=== PATIENT | male | born 1955 | race American Indian/Alaskan Native ===

== ENCOUNTER 2020-11-11 18:39 | Observation (INO) | payer MEDICARE ==
[2020-11-11] MEDS ORDERED: ASPIRIN 325 MG TAB PO ONE (18:47)
--- NOTE | 2020-11-11 18:57 | Event Note ---
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 Further treatment and workup at subsequent clinical providers discretion. Patient/guardian urged not to elope from the ED as their condition may be serious if not clinically assessed and managed. Initial orders include: Code stroke
--- NOTE | 2020-11-11 19:27 | Consultation ---
Medications and Allergies Allergies Allergy/AdvReac Type Severity Reaction Status Date / Time ibuprofen [From Motrin] AdvReac Unknown Verified 11/11/20 18:44 shellfish derived AdvReac Angioedema Verified 11/11/20 18:44 Active Meds: Active Medications Aspirin (Aspirin 325 Mg Tab) 325 mg PO ONCE ONE Stop: 11/11/20 18:48 Physical Examination - Vital Signs Vital Signs: Vital Signs Temp Pulse Resp BP Pulse Ox 97.8 F 89 18 174/73 92 11/11/20 18:43 11/11/20 18:43 11/11/20 18:43 11/11/20 18:43 11/11/20 18:43 Results - Laboratory Findings Abnormal Lab Findings: Abnormal Labs 11/11/20 18:56 POC Glucose 125 H Assessment and Plan [facility] Date of Service: 11/11/2020 18:59:16 Impression: I63.0 - Cerebral infarction due to thrombosis of precerebral arteries Comments/Sign-Out: 65 yo M h/o HTN, DM, HL, lung cancer s/p partial lung resection, radiation, previous renal dialysis, now off HD, [place], DVTs, R hip pain, h/o lung and abdominal bleeding while on Coumadin requiring ICU stay p/w episode of numbness L side followed by chest pain, L arm pain and L sided weakness. Metrics: Last Known Well: 11/11/2020 15:00:00 [facility] Notification Time: 11/11/2020 18:58:59 Arrival Time: 11/11/2020 18:59:00 Stamp Time: 11/11/2020 18:59:16 Time First Login Attempt: 11/11/2020 19:05:51 Video Start Time: 11/11/2020 19:05:51 Symptoms: L sided weakness, chest pain NIHSS Start Assessment Time: 11/11/2020 19:10:50 Patient is not a candidate for Alteplase/Activase. Patient was not deemed candidate for Alteplase/Activase thrombolytics because of Coagulopathy. CT head showed no acute hemorrhage or acute core infarct. Lower Likelihood of Large Vessel Occlusion but Following Stat Studies are Recommended CTA Head and Neck. Sign Out: Inpatient stroke workup Discussed with Emergency Department Provider History of Present Illness: Patient is a 65 year old Male. Patient was brought by private transportation with symptoms of L sided weakness, chest pain 65 yo M h/o HTN, DM, HL, lung cancer s/p partial lung resection, radiation, previous renal dialysis, now off HD, [place], DVTs, R hip pain, h/o lung and abdominal bleeding while on Coumadin requiring ICU stay p/w episode of numbness L side followed by chest pain, L arm pain and L sided weakness. Past Medical History: Hypertension Diabetes Mellitus Hyperlipidemia Coronary Artery Disease Stroke Anticoagulant use: No Antiplatelet use: No Examination: BP(174/73), Pulse(89), Blood Glucose(125) 1A: Level of Consciousness - Alert; keenly responsive + 0 1B: Ask Month and Age - Both Questions Right + 0 1C: Blink Eyes & Squeeze Hands - Performs Both Tasks + 0 2: Test Horizontal Extraocular Movements - Normal + 0 3: Test Visual Walsh - No Visual Loss + 0 4: Test Facial Palsy (Use Grimace if Obtunded) - Normal symmetry + 0 5A: Test Left Arm Motor Drift - Some Effort Against [place] + 2 5B: Test Right Arm Motor Drift - No Drift for 10 Seconds + 0 6A: Test Left Leg Motor Drift - Drift, hits bed + 2 6B: Test Right Leg Motor Drift - No Drift for 5 Seconds + 0 7: Test Limb Ataxia (FNF/Heel-Forte) - No Ataxia + 0 8: Test Sensation - Mild-Moderate Loss: Less Sharp/More Dull + 1 9: Test Language/Aphasia - Normal; No aphasia + 0 10: Test Dysarthria - Normal + 0 11: Test Extinction/Inattention - No abnormality + 0 NIHSS Score: 5 Patient/Family was informed the Neurology Consult would happen via TeleHealth consult by way of interactive audio and video telecommunications and consented to receiving care in this manner. Due to the immediate potential for life-threatening deterioration due to underlying acute neurologic illness, I spent 30 minutes providing critical care. This time includes time for face to face visit via telemedicine, review of medical records, imaging studies and discussion of findings with providers, the patient and/or family. Dr Sagrario Cardenas [facility] Case [id number]
--- NOTE | 2020-11-11 19:30 | Cat Scan Report ---
CT HEAD WITHOUT CONTRAST INDICATION / CLINICAL INFORMATION: Cerebrovascular accident. Code stroke. TECHNIQUE: All CT scans at this location are performed using CT dose reduction for ALARA by means of automated e xposure control. COMPARISON: None available. FINDINGS: HEMORRHAGE: No evidence of intracranial hemorrhage or extra-axial fluid collection. EXTRA-AXIAL SPACES: Cortical sulci, sylvian fissures and basilar cisterns have an unremarkable appear ance. VENTRICULAR SYSTEM: The third and lateral ventricles are of normal size and configuration. CEREBRAL PARENCHYMA: No areas of abnormal brain parenchymal attenuation are identified. There is no i ndication of recent infarction. MIDLINE SHIFT OR HERNIATION: There is no mass effect. CEREBELLUM / BRAINSTEM: Brainstem and cerebellum have an unremarkable appearance. MIDLINE STRUCTURES:No abnormalities of the pituitary gland or pineal region are identified. INTRACRANIAL VESSELS:No abnormalities are identified on this noncontrast head CT. ORBITS: Status post bilateral cataract surgery. No additional abnormality. SOFT TISSUES of HEAD: No significant abnormality. CALVARIUM: Evaluation of bone windows reveals no abnormalities. PARANASAL SINUSES / MASTOID AIR CELLS: Visualized portions of the paranasal sinuses are free from inf lammatory mucosal disease. Mastoid air cells are normally pneumatized. IMPRESSION: 1. No intracranial abnormalities are identified on head CT without contrast. 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 Lu of the [facility] emergency departm ent. Licensed Practitioner Receiving Report: [id number]. Signer Name: Jose F Reyes MD Signed: 11/11/2020 7:25 PM Workstation Name: [id number]
[2020-11-11 19:55] LABS: Basophils % (Auto) 0.4 % (0.0-1.8); Eosinophils # (Auto) 0.1 K/mm3 (0.0-0.4); Eosinophils % (Auto) 2.8 % (0.0-4.3); Hematocrit 40.1 % (35.5-45.6); Lymphocytes # (Auto) 1.8 K/mm3 (1.2-5.4); Lymphocytes % (Auto) 47.3 % (13.4-35.0); Mean Corpuscular HGB Conc 35 % (32-34); Mean Corpuscular Volume 89 fl (84-94); Monocytes # (Auto) 0.3 K/mm3 (0.0-0.8); Monocytes % (Auto) 9.3 % (0.0-7.3); Platelet Count 124 K/mm3 (140-440); Red Blood Count 4.52 M/mm3 (3.65-5.03); Red Cell Distribution Width 17.3 % (13.2-15.2)
[2020-11-11 20:09] LABS: INR 1.1 (0.87-1.13); Partial Thromboplastin Time 30.1 Sec. (24.2-36.6); Thrombin Time 17.5 Sec. (15.1-19.6)
[2020-11-11 20:11] LABS: Creatine Kinase MB 12.7 ng/mL (0.0-4.0)
[2020-11-11 20:12] LABS: BUN/Creatinine Ratio 11; Blood Urea Nitrogen 16 mg/dL (9-20); Calcium 9.3 mg/dL (8.4-10.2); Hemolysis Index 40
[2020-11-11 20:14] LABS: BUN/Creatinine Ratio 11; Blood Urea Nitrogen 16 mg/dL (9-20); Calcium 9.2 mg/dL (8.4-10.2); Hemolysis Index 24
[2020-11-11 20:27] LABS: Alanine Aminotransferase < 5 units/L (7-56)
--- NOTE | 2020-11-11 21:07 | Emergency Department Report ---
ED Chest Pain HPI - General Chief Complaint: Chest Pain Stated Complaint: CHEST PAIN Time Seen by Provider: 11/11/20 18:55 Source: patient Mode of arrival: Ambulatory Limitations: No Limitations - History of Present Illness Initial Comments: CC: chest pain, can not move left side HPI: This is a 65-year-old male with history of lung cancer, myocardial infarction, radiation pneumonitis, DVT, chronic kidney disease and tobacco dependence who presents with chest pain left arm pain left leg weakness left leg weakness. Patient had chest pain which began at rest approximately 1:30 PM this afternoon. Subsequently, he realized that he had left arm weakness left leg weakness with associated numbness. Symptoms occurred around 3 PM. His daughter brought him to the emergency department. Chest pain feels like previous heart attack. He has a chest tightness rating to left shoulder. Chest pain has since resolved without treatment. Patient explained that his heart attack was "mild". He does not have a cardiac stent. He was treated only with nitroglycerin. Patient was recently admitted to [facility] for hemoptysis. Patient was treated for lung cancer with lobectomy and radiation treatment 3 years ago at [facility] in [place]. Patient developed radiation pneumonitis which causes recurrent hemoptysis. Patient has is unable to use anticoagulation or take anticoagulation medicine due to history of severe bleeding. He has history of left leg DVT and right upper extremity DVT. In the past patient has required hemodialysis. He no longer requires hemodialysis. Outside records obtained from [facility] according to inpatient consultation note. patient has history of lung cancer status post wedge resection of upper one third right upper lobe in 2013. Patient had recurrence of lung ca with treatment of chemo and radiation 2 years ago at the [facility]. Patient had NM 10 years ago. Patient has history of COPD. Patient has history of PE DVT status post IVC filter. Patient also has a history of staph and MDR pseudomonal bacteremia. Additional history includes duodenal ulcers On 09/30/2020, CT angiogram of the chest revealed no definite acute findings, Complaint: chest pain, other (Left arm pain, left arm weakness, left leg weakness) -: Gradual, This afternoon Onset: during rest Pain Radiation: LUE Severity: severe Severity scale (0 -10): 0 Quality: tightness, heaviness Consistency: now resolved Improves With: nothing Worsens With: nothing Other Symptoms: other (Left arm pain left leg weakness left arm weakness) Treatments Prior to Arrival: none - Related Data Allergies Allergy/AdvReac Type Severity Reaction Status Date / Time ibuprofen [From Motrin] AdvReac Unknown Verified 11/11/20 18:44 shellfish derived AdvReac Angioedema Verified 11/11/20 18:44 Heart Score - HEART Score History: Slightly suspicious EKG: Non-specific Age: > 65 Risk factors: 1-2 risk factors Troponin: < normal limit HEART Score: 4 ED Review of Systems ROS: Stated complaint: CHEST PAIN Other details as noted in HPI Comment: All other systems reviewed and negative Constitutional: denies: fever, malaise Respiratory: denies: cough, shortness of breath Cardiovascular: chest pain Neurological: weakness, numbness. denies: headache ED Past Medical Hx - Past Medical History Previous Medical History?: Yes Hx Heart Attack/AMI: Yes (2017) Hx Deep Vein Thrombosis: Yes Hx Renal Disease: Yes Hx of Cancer: Yes (lung cancer) - Surgical History Past Surgical History?: Yes Additional Surgical History: Lobectomy, Back surgery laminectomy, bronchial artery coiling, IVC filter, previous port placement, tracheostomy - Social History Smoking Status: Never Smoker Substance Use Type: None ED Physical Exam - General Limitations: No Limitations General appearance: alert, in no apparent distress - Head Head exam: Present: atraumatic, normocephalic - Eye Eye exam: Present: normal appearance - ENT ENT exam: Present: mucous membranes moist - Neck Neck exam: Present: normal inspection, full ROM - Respiratory Respiratory exam: Present: normal lung sounds bilaterally. Absent: respiratory distress, wheezes, rales, rhonchi - Cardiovascular Cardiovascular Exam: Present: regular rate, normal rhythm, normal heart sounds. Absent: systolic murmur, diastolic murmur, rubs, gallop - GI/Abdominal GI/Abdominal exam: Present: soft, normal bowel sounds. Absent: distended, tenderness, guarding, rebound - Rectal Rectal exam: Present: deferred - Extremities Exam Extremities exam: Present: normal inspection - Neurological Exam Neurological exam: Present: alert, oriented X3 - Psychiatric Psychiatric exam: Present: normal affect, normal mood - Skin Skin exam: Present: warm, dry, intact, normal color. Absent: rash ED Course Vital Signs 11/11/20 11/11/20 11/11/20 18:43 19:46 20:00 Temperature 97.8 F Pulse Rate 89 71 75 Respiratory 18 20 12 Rate Blood Pressure 155/80 Blood Pressure 174/73 [Left] O2 Sat by Pulse 92 98 97 Oximetry 11/11/20 11/11/20 11/11/20 21:00 21:30 21:45 Temperature Pulse Rate 65 62 69 Respiratory 17 10 L 16 Rate Blood Pressure 155/80 156/76 156/76 Blood Pressure [Left] O2 Sat by Pulse 97 97 Oximetry - Central Line Placement Right Femoral Consent Obtained: verbal consent Time Out Performed: Yes Patient Placed on Monitor/Pulse Ox: Yes MD Prep: mask, gown, gloves, other (cap) Central Line Prep: Chlorhexidine scrub, sterile drapes applied Local Anesthesia Used: Lidocaine 1% Amount of Anesthesia Used (mls): 5 Ultrasound Used for Placement: Yes Central Line Lumen Inserted: triple Bloods Obtained for Lab: Yes Central Line Position: good blood return, sutured in place with nyl Dressing Applied: Tegaderm, other (biopatch) Patient Tolerated Procedure: well Complications: none JOI score - Joi Score Age > 65: (0) No Aspirin use within the Past 7 Days: (0) No 3 or more CAD Risk Factors: (0) No 2 or more Angina events in past 24 hrs: (0) No Known CAD with more than 50% Stenosis: (0) No Elevated Cardiac Markers: (0) No ST Deviation Greater than 0.5mm: (0) No JOI Score: 0 ED Medical Decision Making - Lab Data Result diagrams: 11/11/20 19:42 11/11/20 19:42 Laboratory Results - last 24 hr 11/11/20 11/11/20 11/11/20 18:56 19:42 19:42 WBC 3.7 L RBC 4.52 Hgb 14.0 Hct 40.1 MCV 89 MCH 31 MCHC 35 H RDW 17.3 H Plt Count 124 L Lymph % (Auto) 47.[address] % (Auto) 9.3 H Eos % (Auto) 2.8 Baso % (Auto) 0.4 Lymph # (Auto) 1.8 Lane # (Auto) 0.3 Eos # (Auto) 0.1 Baso # (Auto) 0.0 Seg Neutrophils % 40.2 Seg Neutrophils # 1.5 L PT INR APTT Thrombin Time Sodium 141 Potassium 4.0 Chloride 109.8 H Carbon Dioxide 23 Anion Gap 12 BUN 16 Creatinine 1.4 H Estimated GFR 51 BUN/Creatinine Ratio 11 Glucose 123 H POC Glucose 125 H Calcium 9.3 Total Bilirubin AST ALT Alkaline Phosphatase Total Creatine Kinase CK-MB (CK-2) CK-MB (CK-2) Rel Index Troponin T < 0.010 Total Protein Albumin Albumin/Globulin Ratio 11/11/20 11/11/20 19:42 19:42 WBC RBC Hgb Hct MCV MCH MCHC RDW Plt Count Lymph % (Auto) Lane % (Auto) Eos % (Auto) Baso % (Auto) Lymph # (Auto) Lane # (Auto) Eos # (Auto) Baso # (Auto) Seg Neutrophils % Seg Neutrophils # PT 14.1 INR 1.10 APTT 30.1 Thrombin Time 17.5 Sodium 138 Potassium 3.8 Chloride 108.2 H Carbon Dioxide 22 Anion Gap 12 BUN 16 Creatinine 1.4 H Estimated GFR 51 BUN/Creatinine Ratio 11 Glucose 123 H POC Glucose Calcium 9.2 Total Bilirubin 0.20 AST 29 ALT < 5 L Alkaline Phosphatase 65 Total Creatine Kinase 348 H CK-MB (CK-2) 12.7 H CK-MB (CK-2) Rel Index 3.6 Troponin T Total Protein 6.8 Albumin 4.0 Albumin/Globulin Ratio 1.4 - EKG Data -: EKG Interpreted by Me EKG shows normal: sinus rhythm, axis, intervals, QRS complexes, ST-T waves Rate: normal - EKG Data Interpretation: normal EKG 11/11/20 21:10 EKG obtained 1842 EKG interpreted by ms Rate 90 bpm Normal sinus rhythm normal rate normal axis normal intervals no ST elevation no ST-T signs of ischemia normal EKG - Radiology Data Radiology results: report reviewed CT HEAD WITHOUT CONTRAST INDICATION / CLINICAL INFORMATION: Cerebrovascular accident. Code stroke. TECHNIQUE: All CT scans at this location are performed using CT dose reduction for ALARA by means of automated exposure control. COMPARISON: None available. FINDINGS: HEMORRHAGE: No evidence of intracranial hemorrhage or extra-axial fluid collection. EXTRA-AXIAL SPACES: Cortical sulci, sylvian fissures and basilar cisterns have an unremarkable appearance. VENTRICULAR SYSTEM: The third and lateral ventricles are of normal size and configuration. CEREBRAL PARENCHYMA: No areas of abnormal brain parenchymal attenuation are iden tified. There is no indication of recent infarction. MIDLINE SHIFT OR HERNIATION: There is no mass effect. CEREBELLUM / BRAINSTEM: Brainstem and cerebellum have an unremarkable appearance. MIDLINE STRUCTURES:No abnormalities of the pituitary gland or pineal region are identified. INTRACRANIAL VESSELS:No abnormalities are identified on this noncontrast head CT. ORBITS: Status post bilateral cataract surgery. No additional abnormality. SOFT TISSUES of HEAD: No significant abnormality. CALVARIUM: Evaluation of bone windows reveals no abnormalities. PARANASAL SINUSES / MASTOID AIR CELLS: Visualized portions of the paranasal sinuses are free from inflammatory mucosal disease. Mastoid air cells are normally pneumatized. IMPRESSION: 1. No intracranial abnormalities are identified on head CT without contrast. CHEST 1 VIEW 11/11/2020 8:13 PM INDICATION / CLINICAL INFORMATION: MAIN. COMPARISON: None available. FINDINGS: SUPPORT DEVICES: None. HEART / MEDIASTINUM: No significant abnormality. LUNGS / PLEURA: Subcentimeter pulmonary granuloma in the left midlung. No acute parenchymal or pleural abnormality. No pneumothorax. ADDITIONAL FINDINGS: No significant additional findings. IMPRESSION: 1. No acute findings. CT angio neck without stenosis or carotid of carotid arteries CT angio head no significant abnormality - Medical Decision Making 1. Chest pain: Patient has history of NM. Troponin x2 -. Normal EKG. Due to pre-existing cardiac disease, patient will benefit from cardiac or stratification. No persistent symptoms or abnormal vital signs to indicate emergent alternative condition such as pulmonary embolism, aortic dissection. No pneumothorax on chest radiograph. Patient states that due to radiation pneumonitis he has chronic findings on chest radiograph which appear abnormal. 2. Left arm weakness left leg weakness patient has severe weakness. Patient will not move left upper and lower extremities on my exam. Code stroke initiated. In consultation with teleneurologist Dr. Cardenas, patient will make di d make effort against gravity in both left arm and left leg. Acute CVA is the ultimate consideration. Due to time of onset and history of severe bleeding, patient is not a candidate for TPA. No evidence of large vessel occlusion. Patient is admitted to telemetry for cardiac evaluation as well as stroke work- up. Aspirin given in the emergency department. Critical Care Time: Yes Critical care time in (mins) excluding proc time.: 40 Critical care attestation.: If time is entered above; I have spent that time in minutes in the direct care of this critically ill patient, excluding procedure time. 40 minutes of critical care time excluding procedures were used in the care of the patient. I came immediately to the bedside upon patient's arrival to treatment room. I discussed treatment plan with the nursing team members. I reviewed electronic record. Patient required multiple interventions and reas sessments. I spoke with multiple consultants including teleneurologist, radiologist and hospitalist. ED Disposition Clinical Impression: Acute coronary syndrome, Acute CVA (cerebrovascular accident) Disposition: OP ADMIT IP TO THIS HOSP Is pt being admited?: Yes Does the pt Need Aspirin: No Condition: Stable - Assessment Assessment Interval: Baseline - Level of Consciousness 1a. Level of Consciousness: alert/keenly responsive - LOC Questions 1b. LOC Questions: answers both correctly - LOC Command 1c. LOC Commands: performs tasks correctly - Best Gaze 2. Best Gaze: normal - Visual 3. Visual: no visual loss - Facial Palsy 4. Facial Palsy: normal symmetrical movement - Motor Arm 5a. Motor Arm Left: no movement 5b. Motor Arm Right: no drift - Motor Leg 6a. Motor Leg Left: no movement 6b. Motor Leg Right: no drift - Limb Ataxia 7. Limb Ataxia: absent - Sensory 8. Sensory: severe/total sensory loss - Best Language 9. Best Language: no aphasia - Dysarthria 10. Dysarthria: normal - Extinction and Inattention 11. Extinction/Inattention: no abnormality - Scoring Total Score: 10 Stroke Severity: Moderate Stroke
--- NOTE | 2020-11-11 21:27 | XRay Report ---
CHEST 1 VIEW 11/11/2020 8:13 PM INDICATION / CLINICAL INFORMATION: MAIN. COMPARISON: None available. FINDINGS: SUPPORT DEVICES: None. HEART / MEDIASTINUM: No significant abnormality. LUNGS / PLEURA: Subcentimeter pulmonary granuloma in the left midlung. No acute parenchymal or pleura l abnormality. No pneumothorax. ADDITIONAL FINDINGS: No significant additional findings. IMPRESSION: 1. No acute findings. Signer Name: Kayden Reyna MD Signed: 11/11/2020 9:22 PM Workstation Name: [id number]
[2020-11-11] MEDS ORDERED: HYDROmorphone 1 MG/1 ML INJ IV ONE (21:34)
[2020-11-11] MEDS ORDERED: ONDANSETRON 4 MG/2 ML INJ IV ONE (21:34)
--- NOTE | 2020-11-11 22:57 | Cat Scan Report ---
CTA head with intravenous contrast CLINICAL HISTORY: Post-CODE STROKE PROTOCOL!!! TECHNIQUE: 0.625 mm thick contiguous axial scans were obtained from the skull base to the skull vertex during r apid bolus administration of intravenous contrast material. Multiplanar reconstructions were produced in the coronal and sagittal planes. In addition 3 plane MIP instructions were produced and reviewed for this report. The axial source images and reconstructed images were reviewed for this report. CONTRAST DOSE REPORT: Omnipaque 350: 100 ml administered intravenously. All CT scans at this location are performed using CT dose reduction for ALARA by means of automated e xposure control. FINDINGS: Internal carotid arteries:Natalie, cavernous, opthalmic, clinoid and supraclinoid segments of the ICAs have an unremarkable appearance. Middle cerebral arteries:Normal and symmetrical M1 segments of the middle cerebral arteries are demon strated. No abnormalities are seen on evaluation of the insular or opercular branches. Anterior cerebral arteries:Bilaterally symmetrical A1 segments are demonstrated. No abnormalities are seen along the course of the A2 segments or their visualized pericallosal branches. Vertebral arteries:Bilaterally symmetrical vertebral arteries are demonstrated. Both vertebral arteri es contribute to the basilar artery origin. Basilar artery:Basilar artery has an unremarkable appearance. Posterior cerebral arteries:Laterally symmetrical posterior cerebral arteries are identified. Dural sinuses: Dural venous sinuses are well demonstrated on this exam. There is no evidence of dural sinus thrombosis. IMPRESSION: No significant abnormality on CTA head. Signer Name: Jose F Reyes MD Signed: 11/11/2020 10:52 PM Workstation Name: [id number]
--- NOTE | 2020-11-11 23:00 | Cat Scan Report ---
CTA neck without and with intravenous contrast material CLINICAL HISTORY: stroke TECHNIQUE: Following acquisition of a timing bolus 0.625 mm thick contiguous axial scans were obtained from aort ic arch to the skull base during rapid bolus intravenous contrast infusion. In addition to evaluation of axial source images multiplanar reconstructions were produced and reviewed for this report. 3 becky ne MIP reconstructions were produced and reviewed. Contrast dose report: Omnipaque 350: 100 ml, administered intravenously All CT examinations performed at this facility utilize modulated dose reduction, iterative reconstruc tion or weight-based dosing, as appropriate, to obtain a radiation dose which is as low as can reason ably be achieved. FINDINGS: Thoracic aorta:No abnormalities are identified along the course of the thoracic aorta..The origins of the great vessels have an unremarkable appearance. Brachiocephalic artery, left common carotid arter y origin and left subclavian artery all have an unremarkable appearance. Right carotid artery:No abnormalities are seen along the course of the RCCA, at the right carotid bif urcation or along the cervical portions of the CIERRA. Left carotid artery: No abnormalities are noted along the course of the left common carotid artery, a t the left carotid bifurcation or along the course of the cervical segments of the LICA. Posterior circulation:The vertebral arteries have an unremarkable appearance. Both vertebral arteries contribute to the basilar artery origin. The basilar artery has an unremarkable appearance. The degree of stenosis, if any, is determined utilizing NASCET like criteria. In this case there is no indication of hemodynamically significant stenosis at the carotid bifurcations or elsewhere. Evaluation of the nonvascular soft tissue structures reveal no abnormality. There is no indication of cervical lymphadenopathy. No abnormalities are seen along the course of the airway. Visualized porti ons of the parotid glands and the submandibular salivary glands have a normal appearance. Thyroid gla nd has a normal appearance. Evaluation of the lung apices reveals no evidence of lung nodule or infil trate. Evaluation of the cervical spine is remarkable for widespread cervical spondylosis with multifocal ne uroforaminal narrowing. Central spinal canal is well-maintained. IMPRESSION: No indication of hemodynamically significant stenosis at the carotid bifurcations or elsewhere. Signer Name: Jose F Reyes MD Signed: 11/11/2020 10:55 PM Workstation Name: [id number]
[2020-11-11] MEDS ORDERED: PROMETHAZINE 25 MG RECT SUPP PR PRN (23:07)
[2020-11-11] MEDS ORDERED: MAGNESIUM HYDROXIDE (MOM) ORAL LIQD UDC PO PRN ×2 (23:07)
[2020-11-11] MEDS ORDERED: MORPHINE 2 MG/1 ML INJ IV PRN (23:07)
[2020-11-11] MEDS ORDERED: ONDANSETRON 4 MG/2 ML INJ IV PRN ×2 (23:07)
[2020-11-11] MEDS ORDERED: METOCLOPRAMIDE 10 MG TAB PO PRN (23:07)
[2020-11-11] MEDS ORDERED: ACETAMINOPHEN 325 MG TAB PO PRN ×2 (23:07)
[2020-11-11] MEDS ORDERED: NITROGLYCERIN 0.4 MG TAB SUBL SL PRN (23:07)
--- NOTE | 2020-11-11 23:27 | History and Physical Report ---
History of Present Illness Date of examination: 11/11/20 Date of admission: 11/11/20 21:39 Chief complaint: Chest Pain Left sided weakness History of present illness: 65-year-old male with known history of lung cancer, RI, chronic kidney disease, DVT, and radiation pneumonitis presenting to the emergency room today complaining of chest pain or left-sided weakness. Chest pain was said to have started sometime this afternoon and later developed weakness of the left upper extremity and left lower extremity with some numbness. Chest pain radiated towards the left shoulder but had resolved before presenting to the emergency room. Patient indicates that the chest pain was similar to the pain he had when he had a mild heart attack. He was recently admitted at [facility] for hemoptysis. He was treated for lung cancer with lobectomy or radiation therapy about 3 years ago at [facility] in [place]. He subsequently developed radiation pneumonitis which causes his recurrent hemoptysis. Work-up in the emergency room today chest x-ray, EKG, CTA head and neck, CT of the head did not show any acute abnormality. Patient is being admitted for chest pain and also for left-sided weakness to rule out CVA. Past History Past Medical History: DVT, pulmonary embolism, renal failure, other (Lung CA,Peptic Ulcer Disease,) Past Surgical History: Other (Lobectomy,Laminectomty,Port Placement,trach eostomy,Staph and pseudomonas infection,Bronchial artery coiling) Medications and Allergies Allergies Allergy/AdvReac Type Severity Reaction Status Date / Time ibuprofen [From Motrin] AdvReac Unknown Verified 11/11/20 18:44 shellfish derived AdvReac Angioedema Verified 11/11/20 18:44 Active Meds: Active Medications Acetaminophen (Acetaminophen 325 Mg Tab) 650 mg PO Q4H PRN PRN Reason: Pain MILD(1-3)/Fever >100.5/MONAHAN Acetaminophen (Acetaminophen 325 Mg Tab) 650 mg PO Q4H PRN PRN Reason: Pain, Mild (1-3) Aspirin (Aspirin 325 Mg Tab) 325 mg PO QDAY ANGIE Atorvastatin Calcium (Atorvastatin 40 Mg Tab) 40 mg PO QHS ANGIE Bisacodyl (Bisacodyl 10 Mg Rect Supp) 10 mg LA QDAY PRN PRN Reason: Constipation Heparin Sodium (Porcine) (Heparin 5,000 Unit/1 Ml Vial) 5,000 unit SUB-Q Q8HR ANGIE Magnesium Hydroxide (Magnesium Hydroxide (Mom) Oral Liqd Udc) 30 ml PO Q4H PRN PRN Reason: Constipation Magnesium Hydroxide (Magnesium Hydroxide (Mom) Oral Liqd Udc) 30 ml PO Q4H PRN PRN Reason: Constipation Metoclopramide HCl (Metoclopramide 10 Mg Tab) 10 mg PO Q6H PRN PRN Reason: Nausea And Vomiting Morphine Sulfate (Morphine 4 Mg/1 Ml Inj) 2 mg IV Q5MIN PRN PRN Reason: Chest Pain Nitroglycerin (Nitroglycerin 0.4 Mg Tab Subl) 0.4 mg SL Q5M PRN PRN Reason: Chest Pain Ondansetron HCl (Ondansetron 4 Mg/2 Ml Inj) 4 mg IV Q8H PRN PRN Reason: Nausea And Vomiting Ondansetron HCl (Ondansetron 4 Mg/2 Ml Inj) 4 mg IV Q8H PRN PRN Reason: Nausea And Vomiting Promethazine HCl (Promethazine 25 Mg Rect Supp) 25 mg LA Q6H PRN PRN Reason: Nausea And Vomiting Sodium Chloride (Sodium Chloride 0.9% 10 Ml Flush Syringe) 10 ml IV BID ANGIE Sodium Chloride (Sodium Chloride 0.9% 10 Ml Flush Syringe) 10 ml IV PRN PRN PRN Reason: LINE FLUSH Sodium Chloride (Sodium Chloride 0.9% 10 Ml Flush Syringe) 10 ml INJ PRN PRN PRN Reason: LINE FLUSH Sodium Chloride (Sodium Chloride 0.9% 10 Ml Flush Syringe) 10 ml IV PRN PRN PRN Reason: LINE FLUSH Review of Systems Constitutional: no fever, no chills Ears, nose, mouth and throat: no nasal discharge, no swelling in mouth Cardiovascular: chest pain, no palpitations, no syncope Respiratory: no cough, no shortness of breath Gastrointestinal: no abdominal pain, no nausea, no vomiting, no diarrhea Genitourinary Male: no dysuria, no hematuria Musculoskeletal: no neck pain, no low back pain Integumentary: no rash, no pruritis Neurological: no weakness (Left sided), no headaches, no change in speech, no change in mentation Psychiatric: no anxiety, no paranoia Exam - Constitutional Vitals: Temp Pulse Resp BP Pulse Ox 97.8 F 69 16 156/76 97 11/11/20 18:43 11/11/20 21:45 11/11/20 21:45 11/11/20 21:45 11/11/20 21:30 General appearance: Present: no acute distress, well-nourished - EENT Eyes: Present: PERRL, EOM intact. Absent: scleral icterus ENT: hearing intact, clear oral mucosa, dentition normal - Neck Neck: Present: supple, normal ROM - Respiratory Respiratory effort: normal Respiratory: bilateral: CTA - Cardiovascular Rhythm: regular Heart Sounds: Present: S1 & S2. Absent: gallop, systolic murmur, diastolic murmur, rub - Extremities Extremities: no ischemia, pulses intact, pulses symmetrical, No edema, abnormal (Left upper and left lower extremity weakness) Peripheral Pulses: within normal limits - Abdominal General gastrointestinal: Present: soft, non-tender, non-distended, normal bowel sounds. Absent: mass - Integumentary Integumentary: Present: clear, warm, dry. Absent: rash - Musculoskeletal Musculoskeletal: left sided weakness - Psychiatric Psychiatric: appropriate mood/affect, intact judgment & insight, memory intact, cooperative - Neurologic Neurologic: CNII-XII intact HEART Score - HEART Score EKG: Non-specific Age: > 65 Risk factors: 1-2 risk factors Troponin: Troponin T < 0.010 ng/mL (0.00-0.029) 11/11/20 21:22 Troponin: < normal limit Results - Labs CBC & Chem 7: 11/11/20 23:53 11/11/20 23:53 Labs: Abnormal lab results 11/11/20 11/11/20 11/11/20 Range/Units 18:56 19:42 19:42 WBC 3.7 L (4.5-11.0) K/mm3 MCHC 35 H (32-34) % RDW 17.3 H (13.2-15.2) % Plt Count 124 L (140-440) K/mm3 Lymph % (Auto) 47.3 H (13.4-35.0) % [place] % (Auto) 9.3 H (0.0-7.3) % Seg Neutrophils # 1.5 L (1.8-7.7) K/mm3 Chloride 109.8 H (98-107) mmol/L Creatinine 1.4 H (0.8-1.3) mg/dL Glucose 123 H (75-100) mg/dL POC Glucose 125 H (70-105) mg/dL ALT (7-56) units/L Total Creatine Kinase (55-170) units/L CK-MB (CK-2) (0.0-4.0) ng/mL 11/11/20 Range/Units 19:42 WBC (4.5-11.0) K/mm3 MCHC (32-34) % RDW (13.2-15.2) % Plt Count (140-440) K/mm3 Lymph % (Auto) (13.4-35.0) % [place] % (Auto) (0.0-7.3) % Seg Neutrophils # (1.8-7.7) K/mm3 Chloride 108.2 H (98-107) mmol/L Creatinine 1.4 H (0.8-1.3) mg/dL Glucose 123 H (75-100) mg/dL POC Glucose (70-105) mg/dL ALT < 5 L (7-56) units/L Total Creatine Kinase 348 H (55-170) units/L CK-MB (CK-2) 12.7 H (0.0-4.0) ng/mL Assessment and Plan - Patient Problems (1) Chest pain Current Visit: Yes Status: Acute Plan to address problem: Patient admitted and placed on telemetry. Will check serial cardiac enzymes. He is placed on aspirin, sublingual nitroglycerin and IV morphine as needed for chest pain. We will request cardiology evaluation and recommendations. (2) Hypertension Current Visit: Yes Status: Acute Plan to address problem: We will resume routine home medications and monitor vital signs closely. (3) H/O: lung cancer Current Visit: Yes Status: Acute Plan to address problem: Patient is status post lumpectomy and radiation therapy. (4) CKD (chronic kidney disease) Current Visit: Yes Status: Acute Plan to address problem: We will monitor BUN and creatinine. (5) Acute CVA (cerebrovascular accident) Current Visit: Yes Status: Acute Plan to address problem: We will continue patient on daily aspirin. Patient be scheduled for MRI of the brain and carotid Doppler. We will place consult to neurology for evaluation. (6) DVT prophylaxis Current Visit: Yes Status: Acute Plan to address problem: Patient on sequential compression device. He has not been able to tolerate anticoagulation secondary to recurrent hemoptysis. (7) Full code status Current Visit: Yes Status: Acute
[2020-11-12 00:27] LABS: Hematocrit 38.9 % (35.5-45.6); Hemoglobin 13.5 gm/dl (11.8-15.2); Mean Corpuscular HGB Conc 35 % (32-34); Mean Corpuscular Volume 89 fl (84-94); Platelet Count 110 K/mm3 (140-440); Red Blood Count 4.36 M/mm3 (3.65-5.03); Red Cell Distribution Width 17.8 % (13.2-15.2)
[2020-11-12 00:29] LABS: BUN/Creatinine Ratio 12; Blood Urea Nitrogen 17 mg/dL (9-20); Calcium 9.1 mg/dL (8.4-10.2); Hemolysis Index 16
[2020-11-12 00:44] LABS: Basophils % (Auto) 1.5 % (0.0-1.8); Eosinophils # (Auto) 0.2 K/mm3 (0.0-0.4); Eosinophils % (Auto) 4.9 % (0.0-4.3); Lymphocytes # (Auto) 1.6 K/mm3 (1.2-5.4); Lymphocytes % (Auto) 48.3 % (13.4-35.0); Monocytes # (Auto) 0.2 K/mm3 (0.0-0.8)
[2020-11-12 04:15] LABS: HDL Cholesterol 24 mg/dL (40-59); LDL Cholesterol,Direct TNR mg/dL (50-130)
[2020-11-12] MEDS: HEPARIN 5,000 UNIT/1 ML VIAL SUB-Q SCH ×2 (07:01→13:07)
[2020-11-12] MEDS ORDERED: ASPIRIN 325 MG TAB PO SCH (10:00)
--- NOTE | 2020-11-12 11:35 | Magnetic Resonance Report ---
MRI BRAIN WITHOUT CONTRAST INDICATION / CLINICAL INFORMATION: stroke. TECHNIQUE: Multisequence, multiplanar images were obtained. COMPARISON: CT head dated 11/11/2020 FINDINGS: CEREBRAL and CEREBELLAR HEMISPHERES: No evidence of mass or mass effect. No midline shift. No acute hemorrhage. No diffusion restriction to suggest acute infarct. No extra-axial fluid collection. M inimal nonspecific chronic white matter changes are noted in the frontal lobes. VENTRICLES: Normal in size and configuration for age. VISUALIZED ORBITS: No significant abnormality. VISUALIZED PARANASAL SINUSES: No significant abnormality. ADDITIONAL FINDINGS: None. IMPRESSION: Minimal nonspecific chronic white matter changes which appear appropriate for this person's age. No e vidence for acute infarct, hemorrhage or mass lesion. Signer Name: Baltazar Romero Jr, MD Signed: 11/12/2020 11:30 AM Workstation Name: [id number]
--- NOTE | 2020-11-12 13:33 | Discharge Summary ---
Providers - Providers Date of Admission: 11/11/20 21:39 Date of discharge: 11/12/20 Attending physician: KYLE ROTHMAN 11/11/20 Consult to Cardiac Rehabilitation [CONS] Routine Reason For Exam: Phase I 11/11/20 23:07 Consult to Physician [CONS] Routine Comment: Consulting Provider: NIRMALA LIN Physician Instructions: Reason For Exam: left sided weakness 11/11/20 23:08 Consult to Cardiology [CONS] Routine Consulting Provider: BON COLLINS Reason For Exam: chest pain Occupational Therapy Evaluate and Treat [CONS] Routine Comment: Reason For Exam: Neuro deficits Physical Therapy Evaluation and Treat [CONS] Routine Comment: Reason For Exam: Neuro deficits 11/11/20 23:15 Consult to Dietitian/Nutrition [CONS] Routine Physician Instructions: Reason For Exam: Reason for Consult: Diet education Primary care physician: [employer] APPLICATOR Hospitalization Condition: Stable Pertinent studies: MRI brain showed nonspecific white matter changes consistent with age. CT neck unremarkable. CT neck no evidence of stenosis. Echocardiogram ejection fraction 50 to 65%. Mild LVH. Hospital course: 65-year-old male presents with a history of hypertension diabetes lung cancer. Had acute on chronic renal failure and was on hemodialysis now off. Presented with left arm and neck pain with numbness radiating down her arm. There was thought process that may be patient had a CVA. On physical exam it appears to be musculoskeletal pinched nerve. When you press on the trapezius muscle group he still has numbness there. Will benefit from physical therapy. Patient is chest pain-free arm is not numb or hurting now only when manipulated with my fingers. Patient stable discharge home follow with primary care physician follow cardiology and will order physical therapy for home. Disposition: DC- TO HOME OR SELFCARE - Discharge Diagnoses (1) Chest pain Status: Acute Comment: Patient chest pain-free with severely neck pain secondary to musculoskeletal strain. Echocardiogram unremarkable cardiac isoenzymes unremarkable EKG unremarkable. Patient also chest pain-free no shortness of breath very atypical. (2) H/O: lung cancer Status: Acute Comment: Follow-up with oncology. (3) Hypertension Status: Acute Comment: Well-controlled. Patient stable for discharge. Core Measure Documentation - Palliative Care Palliative Care/ Comfort Measures: Not Applicable - Core Measures Any of the following diagnoses?: none Exam - Constitutional Vitals: Temp Pulse Resp BP Pulse Ox 97.6 F 102 H 18 151/84 98 11/12/20 08:00 11/12/20 08:00 11/12/20 08:00 11/12/20 08:00 11/12/20 01:14 General appearance: Present: no acute distress, well-nourished - EENT Eyes: Present: PERRL ENT: hearing intact, clear oral mucosa - Neck Neck: Present: supple, normal ROM - Respiratory Respiratory effort: normal Respiratory: bilateral: CTA - Cardiovascular Heart Sounds: Present: S1 & S2. Absent: rub, click - Extremities Extremities: pulses symmetrical, No edema Peripheral Pulses: within normal limits - Abdominal General gastrointestinal: Present: soft, non-tender, non-distended, normal bowel sounds Male genitourinary: Present: normal - Integumentary Integumentary: Present: clear, warm, dry - Musculoskeletal Musculoskeletal: gait normal, strength equal bilaterally - Psychiatric Psychiatric: appropriate mood/affect, intact judgment & insight - Neurologic Neurologic: CNII-XII intact, moves all extremities Plan Activity: no restrictions Diet: low salt, low carbohydrate Special Instructions: physical therapy Additional Instructions: pt for muscle pain and neck stifness Follow up with: PRIMARY CARE, [Primary Care Provider] - 3-5 Days
[2020-11-12 13:34] VITALS: BP 122/48
--- NOTE | 2020-11-12 14:56 | Consultation ---
History of Present Illness Consult date: 11/12/20 Requesting physician: VLADISLAV GARCIAS Consult reason: chest pain History of present illness: The pt is a 65-year-old male with a past medical history of lung cancer s/p wedge resection in 2013, recurrent hemoptysis secondary to pneumonitis radiation, CAD s/p AMI 4 years ago in [place] with no intervention required per pt report, COPD, chronic respiratory failure requiring home O2, PE/DVT s/p IVC filter in 2013, CKD formerly on hemodialysis. He is previously unknown to our practice. He presented with c/o chest pain for several hours prior to arrival. Pt also c/o some left-sided weakness. On evaluation, he states his symptoms are resolved and he is being discharged home and does not wish to provide any additional details regarding his presenting symptoms. Past History Past Medical History: DVT, pulmonary embolism, renal failure, other (Lung CA,Peptic Ulcer Disease,) Past Surgical History: Other (Lobectomy,Laminectomty,Port Placement,tracheosto my,Staph and pseudomonas infection,Bronchial artery coiling) Medications and Allergies Allergies Allergy/AdvReac Type Severity Reaction Status Date / Time ibuprofen [From Motrin] AdvReac Unknown Verified 11/11/20 18:44 shellfish derived AdvReac Angioedema Verified 11/11/20 18:44 Home Medications Medication Instructions Recorded Confirmed Last Taken Type Acetaminophen [Acetaminophen TAB] 650 mg PO Q4H PRN tablet 11/12/20 Unknown Rx AtorvaSTATin [Lipitor] 40 mg PO QHS tablet 11/12/20 Unknown Rx Nitroglycerin [Nitrostat] 0.4 mg SL Q5M PRN tablet 11/12/20 Unknown Rx Promethazine [Phenergan SUPPOS] 25 mg MI Q6H PRN supp.rect 11/12/20 Unknown Rx Sodium Chloride 0.9% Int [Sodium 10 ml IV BID syringe 11/12/20 Unknown Rx Chloride Flush Syringe 10 ml] Sodium Chloride 0.9% Int [Sodium 10 ml IV PRN PRN syringe 11/12/20 Unknown Rx Chloride Flush Syringe 10 ml] bisacodyL [Dulcolax suppos] 10 mg MI QDAY PRN supp.rect 11/12/20 Unknown Rx Active Meds: Active Medications Acetaminophen (Acetaminophen 325 Mg Tab) 650 mg PO Q4H PRN PRN Reason: Pain MILD(1-3)/Fever >100.5/MONAHAN Aspirin (Aspirin 325 Mg Tab) 325 mg PO QDAY [facility] Last Admin: 11/12/20 11:23 Dose: 325 mg Documented by: Atorvastatin Calcium (Atorvastatin 40 Mg Tab) 40 mg PO QHS [facility] Bisacodyl (Bisacodyl 10 Mg Rect Supp) 10 mg MI QDAY PRN PRN Reason: Constipation Heparin Sodium (Porcine) (Heparin 5,000 Unit/1 Ml Vial) 5,000 unit SUB-Q Q8HR [facility] Last Admin: 11/12/20 13:07 Dose: 5,000 unit Documented by: Magnesium Hydroxide (Magnesium Hydroxide (Mom) Oral Liqd Udc) 30 ml PO Q4H PRN PRN Reason: Constipation Metoclopramide HCl (Metoclopramide 10 Mg Tab) 10 mg PO Q6H PRN PRN Reason: Nausea And Vomiting Morphine Sulfate (Morphine 2 Mg/1 Ml Inj) 2 mg IV Q5MIN PRN PRN Reason: Chest Pain Nitroglycerin (Nitroglycerin 0.4 Mg Tab Subl) 0.4 mg SL Q5M PRN PRN Reason: Chest Pain Ondansetron HCl (Ondansetron 4 Mg/2 Ml Inj) 4 mg IV Q8H PRN PRN Reason: Nausea And Vomiting Promethazine HCl (Promethazine 25 Mg Rect Supp) 25 mg MI Q6H PRN PRN Reason: Nausea And Vomiting Sodium Chloride (Sodium Chloride 0.9% 10 Ml Flush Syringe) 10 ml IV BID [facility] Last Admin: 11/12/20 11:23 Dose: 10 ml Documented by: Sodium Chloride (Sodium Chloride 0.9% 10 Ml Flush Syringe) 10 ml IV PRN PRN PRN Reason: LINE FLUSH Review of Systems Constitutional: no weight loss, no weight gain, no fever, no chills, no sweats Ears, nose, mouth and throat: no ear pain, no nose pain, no sinus pressure, no sinus pain Cardiovascular: chest pain, no orthopnea, no palpitations, no rapid/irregular heart beat, no edema, no syncope, no lightheadedness, no shortness of breath, no dyspnea on exertion Respiratory: no cough, no shortness of breath, no dyspnea on exertion, no conges tion, no wheezing, no pain on inspiration Gastrointestinal: no abdominal pain, no nausea, no vomiting, no diarrhea, no constipation, no change in bowel habits Genitourinary Male: no dysuria, no hematuria, no flank pain, no discharge, no urinary frequency, no urinary hesitancy Musculoskeletal: no neck stiffness, no neck pain, no shooting arm pain, no arm numbness/tingling, no low back pain, no shooting leg pain Integumentary: no rash, no pruritis, no redness, no sores, no wounds Neurological: weakness (left-sided), no head injury, no paralysis, no parathesias, no numbness, no tingling, no seizures, no syncope Psychiatric: no anxiety Endocrine: no cold intolerance, no heat intolerance Hematologic/Lymphatic: no easy bruising Allergic/Immunologic: no urticaria Physical Examination Vital Signs Temp Pulse Resp BP Pulse Ox 97.8 F 89 18 174/73 92 11/11/20 18:43 11/11/20 18:43 11/11/20 18:43 11/11/20 18:43 11/11/20 18:43 General appearance: no acute distress HEENT: Positive: PERRL, Normocephaly, Mucus Membranes Moist Neck: Positive: neck supple, trachea midline Cardiac: Positive: Reg Rate and Rhythm, S1/S2 Lungs: Positive: Decreased Breath Sounds Neuro: Positive: Grossly Intact Abdomen: Negative: Tender Skin: Negative: Rash Musculoskeletal: No Pain Extremities: Absent: edema Results 11/11/20 23:53 11/11/20 23:53 Cardiac Enzymes 11/11/20 Range/Units 19:42 AST 29 (5-40) units/L CK-MB (CK-2) 12.7 H (0.0-4.0) ng/mL Coagulation 11/11/20 Range/Units 19:42 PT 14.1 (12.2-14.9) Sec. INR 1.10 (0.87-1.13) APTT 30.1 (24.2-36.6) Sec. Lipids 11/11/20 Range/Units 23:53 Triglycerides 471 H (2-149) mg/dL Cholesterol 185 (50-199) mg/dL HDL Cholesterol 24 L (40-59) mg/dL Cholesterol/HDL Ratio 7.70 % CBC 11/11/20 11/11/20 Range/Units 19:42 23:53 WBC 3.7 L 3.3 L (4.5-11.0) K/mm3 RBC 4.52 4.36 (3.65-5.03) M/mm3 Hgb 14.0 13.5 (11.8-15.2) gm/dl Hct 40.1 38.9 (35.5-45.6) % Plt Count 124 L 110 L (140-440) K/mm3 Lymph # (Auto) 1.8 1.6 (1.2-5.4) K/mm3 [place] # (Auto) 0.3 0.2 (0.0-0.8) K/mm3 Eos # (Auto) 0.1 0.2 (0.0-0.4) K/mm3 Baso # (Auto) 0.0 0.0 (0.0-0.1) K/mm3 Comprehensive Metabolic Panel 11/11/20 11/11/20 11/11/20 Range/Units 19:42 19:42 23:53 Sodium 141 138 140 (137-145) mmol/L Potassium 4.0 3.8 3.9 (3.6-5.0) mmol/L Chloride 109.8 H 108.2 H 109.1 H (98-107) mmol/L Carbon Dioxide 23 22 20 L (22-30) mmol/L BUN 16 16 17 (9-20) mg/dL Creatinine 1.4 H 1.4 H 1.4 H (0.8-1.3) mg/dL Glucose 123 H 123 H 108 H (75-100) mg/dL Calcium 9.3 9.2 9.1 (8.4-10.2) mg/dL AST 29 (5-40) units/L ALT < 5 L (7-56) units/L Alkaline Phosphatase 65 (35-129) units/L Total Protein 6.8 (6.3-8.2) g/dL Albumin 4.0 (3.9-5) g/dL - Imaging and Cardiology Echo: report reviewed EKG: report reviewed, image reviewed EKG interpretations - Telemetry EKG Rhythm: Sinus Rhythm - EKG Sinus rhythms and dysrhythmias: sinus rhythm Repolarization changes or abnormalities: repolarization abn secondary to ventricular hypertrophy Assessment and Plan tte reviewed - EF 55-60%, impaired relaxation, mild LVH. ECG with NAF. Adams negative for AMI x 3 sets. Chest pain currently resolved. Inpatient pharmacologic stress testing recommended for definitive diagnosis, however, pt declines stress testing at this time and wishes to be discharged home. He would like to undergo stress testing as OP. Recommend pt follow up in our office with Dr. Bertram Donahue within 2 weeks ([phone]). Pt verbalizes understanding. The patient has been seen in conjunction with Dr. Bertram Donahue who agrees with the assessment and plan of care. - Patient Problems (1) Chest pain Current Visit: Yes Status: Resolved (2) Acute CVA (cerebrovascular accident) Current Visit: Yes Status: Suspected (3) CAD (coronary artery disease) Current Visit: Yes Status: Acute Plan to address problem: CAD s/p AMI 4 years ago in [place] with no intervention required per pt report (4) H/O: lung cancer Current Visit: Yes Status: Chronic (5) COPD (chronic obstructive pulmonary disease) Current Visit: Yes Status: Chronic (6) Chronic respiratory failure Current Visit: Yes Status: Chronic (7) History of pulmonary embolism Current Visit: Yes Status: Chronic (8) History of DVT (deep vein thrombosis) Current Visit: Yes Status: Chronic (9) Presence of IVC filter Current Visit: Yes Status: Chronic (10) CKD (chronic kidney disease) Current Visit: Yes Status: Chronic
--- NOTE | 2020-11-12 16:08 | Vascular Lab Report ---
BILATERAL CAROTID DOPPLER ULTRASOUND INDICATION : stroke TECHNIQUE: Grayscale and color Doppler imaging performed through the neck. COMPARISON: None FINDINGS: Right: There is no significant atherosclerotic disease. Peak systolic velocity in the CCA is 80 cm/ s with end-diastolic velocity of 19 cm/s. Peak systolic velocity in the proximal ICA is 69 cm/s with end-diastolic velocity of 23 cm/s. ICA to CCA ratio is less than 2. There is antegrade flow in the E CA and the vertebral artery. Left: There is no significant atherosclerotic disease. Peak systolic velocity in the CCA is 103 cm/s with end-diastolic velocity of 15 cm/s. Peak systolic velocity in the proximal ICA is 83 cm/s with en d-diastolic velocity of 23 cm/s. ICA to CCA ratio is less than 2. There is antegrade flow in the ECA and the vertebral artery. IMPRESSION: No hemodynamically significant stenosis by NASCET criteria. Doppler velocities indicate l ess than 50% luminal narrowing bilaterally. Signer Name: Baltazar Romero Jr, MD Signed: 11/12/2020 4:03 PM Workstation Name: [id number]
--- NOTE | 2020-11-12 16:24 | Consultation ---
History of Present Illness Consult date: 11/12/20 Reason for Consult: left-sided chest pain, tightness, and shooting pain in the left upper extre History of present illness: This is a comprehensive neurological consultation on Mr. Shiva Morse who is a very pleasant 65-year-old gentleman admitted with the symptoms of sudden onset of left-sided chest pain/tightness and also noted shooting pain from left shoulder to his left arm. He also felt weakness in his left arm. There was no facial involvement or left leg involvement at the same time. He denied any headache, blurred vision, double vision, loss of vision, slurring of the speech or any focal imbalance. His CT scan of the brain was unremarkable. CT angios of head and neck are unremarkable. Later he had MRI of the brain which is also unremarkable. Past History Past Medical History: DVT, pulmonary embolism, renal failure, other (Lung CA,Peptic Ulcer Disease,) Past Surgical History: Other (Lobectomy,Laminectomty,Port Placement,tracheostomy,Staph and pseudomonas infection,Bronchial artery coiling) Social history: no significant social history Family history: no significant family history Medications and Allergies Allergies Allergy/AdvReac Type Severity Reaction Status Date / Time ibuprofen [From Motrin] AdvReac Unknown Verified 11/11/20 18:44 shellfish derived AdvReac Angioedema Verified 11/11/20 18:44 Home Medications Medication Instructions Recorded Confirmed Last Taken Type Acetaminophen [Acetaminophen TAB] 650 mg PO Q4H PRN tablet 11/12/20 Unknown Rx AtorvaSTATin [Lipitor] 40 mg PO QHS tablet 11/12/20 Unknown Rx Nitroglycerin [Nitrostat] 0.4 mg SL Q5M PRN tablet 11/12/20 Unknown Rx Promethazine [Phenergan SUPPOS] 25 mg HI Q6H PRN supp.rect 11/12/20 Unknown Rx Sodium Chloride 0.9% Int [Sodium 10 ml IV BID syringe 11/12/20 Unknown Rx Chloride Flush Syringe 10 ml] Sodium Chloride 0.9% Int [Sodium 10 ml IV PRN PRN syringe 11/12/20 Unknown Rx Chloride Flush Syringe 10 ml] bisacodyL [Dulcolax suppos] 10 mg HI QDAY PRN supp.rect 11/12/20 Unknown Rx Active Meds: Active Medications Acetaminophen (Acetaminophen 325 Mg Tab) 650 mg PO Q4H PRN PRN Reason: Pain MILD(1-3)/Fever >100.5/[place] Aspirin (Aspirin 325 Mg Tab) 325 mg PO QDAY [facility] Last Admin: 11/12/20 11:23 Dose: 325 mg Documented by: Atorvastatin Calcium (Atorvastatin 40 Mg Tab) 40 mg PO QHS [facility] Bisacodyl (Bisacodyl 10 Mg Rect Supp) 10 mg HI QDAY PRN PRN Reason: Constipation Heparin Sodium (Porcine) (Heparin 5,000 Unit/1 Ml Vial) 5,000 unit SUB-Q Q8HR [facility] Last Admin: 11/12/20 13:07 Dose: 5,000 unit Documented by: Magnesium Hydroxide (Magnesium Hydroxide (Mom) Oral Liqd Udc) 30 ml PO Q4H PRN PRN Reason: Constipation Metoclopramide HCl (Metoclopramide 10 Mg Tab) 10 mg PO Q6H PRN PRN Reason: Nausea And Vomiting Morphine Sulfate (Morphine 2 Mg/1 Ml Inj) 2 mg IV Q5MIN PRN PRN Reason: Chest Pain Nitroglycerin (Nitroglycerin 0.4 Mg Tab Subl) 0.4 mg SL Q5M PRN PRN Reason: Chest Pain Ondansetron HCl (Ondansetron 4 Mg/2 Ml Inj) 4 mg IV Q8H PRN PRN Reason: Nausea And Vomiting Promethazine HCl (Promethazine 25 Mg Rect Supp) 25 mg HI Q6H PRN PRN Reason: Nausea And Vomiting Sodium Chloride (Sodium Chloride 0.9% 10 Ml Flush Syringe) 10 ml IV BID [facility] Last Admin: 11/12/20 11:23 Dose: 10 ml Documented by: Sodium Chloride (Sodium Chloride 0.9% 10 Ml Flush Syringe) 10 ml IV PRN PRN PRN Reason: LINE FLUSH Review of Systems All systems: negative (left-sided shoulder pain) Physical Examination - Vital Signs Vital Signs: Vital Signs Temp Pulse Resp BP Pulse Ox 97.8 F 89 18 174/73 92 11/11/20 18:43 11/11/20 18:43 11/11/20 18:43 11/11/20 18:43 11/11/20 18:43 - Physical Exam Narrative exam: Comprehensive Neurological Examinations: Mental status: alert. Fund of knowledge-normal. Affect-appropriate. Recent memory-normal. Remote memory-normal. Attention span-normal. Cognitive function-normal. Thought content/perception-normal Speech-normal Cranial nerves: II Optic: Visual fcdzkr-sywsgvbxq-picasc. Visual field-normal. III Oculomotor: Bilateral-normal IV Trochlear: Bilateral-normal V Trigeminal: Bilateral-normal. Abducens: Bilateral-normal VII Facial: Bilateral-normal VIII Acoustic: pxsrlcxhq-vkcgoef-zhrfxr( tested by finger rub) IX Glossopharyngeal/ X Gtzfn-jpatl-jbkwxz XI Accessory-normal shoulder shrug XII Rnmwzuveoet-qurgpxbbn-ngsxxg Eye movements: Ayjk-dlzvdwgxa-hxpyiz Nystagmus: Bilateral-none Motor: Bulk and contour: Normal Tone: Normal Strength: Head and neck-normal Upper extremities: Right-no drift Left-no drift Lower extremities: Right-no drift Left-no drift DTRs: Deferred Sensory: Light touch/fqsupwwg-mxyekz-ftrdbkhe Pain/kuiqepgxdli-ixfyov-xjeemojc Coordination: No impairment Wmfv-es-Xxfu, no impairment of alvxfa-ua-atim or no impairment of rapid alternating movements. Gait/Station: Normal - Constitutional General appearance: comfortable - EENT EENT: Present: ATNC, PERRL, hearing intact, vision intact - Respiratory Respiratory: Present: chest non-tender, no respiratory distress - Cardiovascular Cardiovascular: Present: regular rate Extremities: Present: no peripheral edema bilatateraly, no clubbing, cyanosis - Gastrointestinal Gastrointestinal: Present: soft, non-tender - Integumentary Integumentary: Present: normal - Level of Consciousness 1a. Level of Consciousness: alert/keenly responsive - LOC Questions 1b. LOC Questions: answers both correctly - LOC Command 1c. LOC Commands: performs tasks correctly - Best Gaze 2. Best Gaze: normal - Visual 3. Visual: no visual loss - Facial Palsy 4. Facial Palsy: normal symmetrical movement - Motor Arm 5a. Motor Arm Left: no drift 5b. Motor Arm Right: no drift - Motor Leg 6a. Motor Leg Left: no drift 6b. Motor Leg Right: no drift - Limb Ataxia 7. Limb Ataxia: absent - Sensory 8. Sensory: normal - Best Language 9. Best Language: no aphasia - Dysarthria 10. Dysarthria: normal - Extinction and Inattention 11. Extinction/Inattention: no abnormality - Scoring Total Score: 0 Stroke Severity: No Stroke Symptoms Results - Laboratory Findings CBC and BMP: 11/11/20 23:53 11/11/20 23:53 Abnormal Lab Findings: Abnormal Labs 11/11/20 11/11/20 11/11/20 18:56 19:42 19:42 WBC 3.7 L MCHC 35 H RDW 17.3 H Plt Count 124 L Lymph % (Auto) 47.3 H Mccormick % (Auto) 9.3 H Eos % (Auto) Seg Neutrophils % Seg Neutrophils # 1.5 L Chloride 109.8 H Carbon Dioxide Creatinine 1.4 H Glucose 123 H POC Glucose 125 H ALT Total Creatine Kinase CK-MB (CK-2) Triglycerides HDL Cholesterol 11/11/20 11/11/20 11/11/20 19:42 23:53 23:53 WBC 3.3 L MCHC 35 H RDW 17.8 H Plt Count 110 L Lymph % (Auto) 48.3 H Mccormick % (Auto) Eos % (Auto) 4.9 H Seg Neutrophils % 38.3 L Seg Neutrophils # 1.3 L Chloride 108.2 H Carbon Dioxide Creatinine 1.4 H Glucose 123 H POC Glucose ALT < 5 L Total Creatine Kinase 348 H CK-MB (CK-2) 12.7 H Triglycerides 471 H HDL Cholesterol 24 L 11/11/20 23:53 WBC MCHC RDW Plt Count Lymph % (Auto) Mccormick % (Auto) Eos % (Auto) Seg Neutrophils % Seg Neutrophils # Chloride 109.1 H Carbon Dioxide 20 L Creatinine 1.4 H Glucose 108 H POC Glucose ALT Total Creatine Kinase CK-MB (CK-2) Triglycerides HDL Cholesterol - Diagnostic Findings Additional findings: MRI of the brain was unremarkable. Assessment and Plan - Patient Problems (1) Cervical radiculopathy at C6 Current Visit: Yes Status: Acute Plan to address problem: Plan: 1) Although it was very difficult examination in relation to telemetry health, it sounds like he had the symptoms in his left arm could be referred from his left side of the chest and or left cervical radiculopathy. There is no evidence of stroke or TIA at this time. 2) Patient needs follow-up visit with the local neurologist in person who can examine him and diagnoses him that he really has a left cervical radiculopathy and nothing pertinent to his brain. 3) [facility] patient is cleared for discharge I discussed at length with the patient regarding his condition and possible treatment options. I have answered multiple questions posed by the patient to his best satisfactions. Patient agreed with the plan. Thank you very much for allowing us in the care of your patient. Please call us if you have any questions. Lai Oconnor MD Tele-neurologist [phone]
== END 2020-11-12 18:20 | disposition home or self-care (01) ==
LOC: ED 18:39 → 4A 21:39
PROVIDERS: ADMIT Internal Medicine Geriatric Medicine; ATTEND Internal Medicine
DX: J96.10 Chronic respiratory failure, unspecified whether with hypoxia or hypercapnia (principal); I63.9 Cerebral infarction, unspecified; I24.9 Acute ischemic heart disease, unspecified; J44.9 Chronic obstructive pulmonary disease, unspecified; I12.9 Hypertensive chronic kidney disease with stage 1 through stage 4 chronic kidney disease, or unspecified chronic kidney disease; N18.9 Chronic kidney disease, unspecified; E11.9 Type 2 diabetes mellitus without complications; E78.5 Hyperlipidemia, unspecified; I25.2 Old myocardial infarction; I25.10 Atherosclerotic heart disease of native coronary artery without angina pectoris; K27.9 Peptic ulcer, site unspecified, unspecified as acute or chronic, without hemorrhage or perforation; M54.12 Radiculopathy, cervical region; R29.705 NIHSS score 5; Z85.118 Personal history of other malignant neoplasm of bronchus and lung; Z86.711 Personal history of pulmonary embolism; Z86.718 Personal history of other venous thrombosis and embolism; Z98.890 Other specified postprocedural states; Z79.82 Long term (current) use of aspirin; Z86.73 Personal history of transient ischemic attack (TIA), and cerebral infarction without residual deficits; Z79.899 Other long term (current) drug therapy
CPT/HCPCS: 36415; 70450; 70496; 70498; 70551; 71045; 80048; 80053; 80061; 82550; 82553; 82962; 84484; 85025; 85610; 85670; 85730; 93005; 93306; 93880; 96372; 96374; 96375; 97162; 97165; 99291; G0378; J1170; J1644; J2405; Q9967